=== PATIENT | male | born 1970 | race Caucasian/White ===

== ENCOUNTER 2017-08-05 20:01 | Observation (INO) | payer OTHER ==
[~2017-08-05] VITALS: Ht 180.3 cm; Wt 124.5 kg
[~2017-08-05 20:01] MED LIST: ZANTAC150 MG PO
[2017-08-05 20:50] LABS: MCH 28.1 PG (29.0-34.0); MCHC 33.2 G/DL (30.0-36.0); MCV 84.7 FL (86-99); MEAN PLAT.VOLUME 9.4 uM^3 (9.0-12.4); PLATELET COUNT 227 K/uL (156-360); RBC DIS.WIDTH-CV 12.7 % (11.8-14.6); RED BLOOD COUNT 5.55 M/uL (4.00-5.50); WHITE BLOOD COUNT 12.6 K/uL (4.1-10.2)
[2017-08-05 20:54] LABS: CHLORIDE 105 mEq/L (99-109); POTASSIUM 4.6 mEq/L (3.7-5.4); SODIUM 138 mEq/L (136-147)
[2017-08-05 20:56] LABS: GLUCOSE 125 mg/dL (70-99)
[2017-08-05 20:57] LABS: ANION GAP 10 MEQ/L (2-14)
[2017-08-05 20:58] LABS: TOTAL BILIRUBIN 0.4 mg/dL (0.0-1.0)
[2017-08-05 20:59] LABS: ALKALINE PHOSPHATASE 63 IU/L (3-129)
[2017-08-05 21:00] LABS: GFR ESTIMATE (CALCULATED) > 59 mL/min/
[2017-08-05 21:01] LABS: UREA NITROGEN (BUN) 15 mg/dL (9-23)
[2017-08-05 21:03] LABS: LIPASE 28 U/L (1.0-51.0)
[2017-08-05 21:06] LABS: TROP-I INTERPRETATION NEGATIVE; TROPONIN-I < 0.01 ng/mL (0.0-0.30)
[2017-08-05 23:27] LABS: PROTHROMBIN TIME 11.2 SEC (10.2-12.9)
[2017-08-05 23:30] LABS: PTT 28.9 SEC (25-37)
[2017-08-06] MEDS ORDERED: MOTRIN IB200 MG PO (01:53)
[2017-08-06 02:12] LABS: HDL CHOLESTEROL 45 MG/DL (Desirable>=40); LDL CHOLESTEROL 111 mg/dL (Desirable<100); NON-HDL CHOLESTEROL 144 mg/dL (Desirable<160); SAMPLE HEMOLYSIS CHECK 0; SAMPLE ICTERIC CHECK 0; SAMPLE LIPEMIA CHECK 0; TOTAL CHOLESTEROL 189 mg/dL (Desirable<200); TRIGLYCERIDES 167 MG/DL (Normal: <150)
[2017-08-06 07:24] LABS: TROP-I INTERPRETATION NEGATIVE; TROPONIN-I < 0.01 ng/mL (0.0-0.30)
[2017-08-06 09:36] VITALS: BP 133/90
[2017-08-06 11:45] VITALS: BP 134/80
[2017-08-06 12:34] VITALS: BP 135/90
[2017-08-06 12:36] VITALS: BP 142/99
[2017-08-06 12:37] VITALS: BP 136/93
[2017-08-06 13:10] LABS: TROP-I INTERPRETATION NEGATIVE; TROPONIN-I < 0.01 ng/mL (0.0-0.30)
[2017-08-07] MEDS ORDERED: ASPIR 8181 M1 PO (17:56)
== END 2017-08-06 18:10 | disposition home or self-care (01) ==
LOC: EME 20:01 → EDOF 08-06 02:17 → ENRESERV 08-06 02:19 → 5WEST 08-06 09:30
PROVIDERS: Emergency Medicine; Hospitalist
DX: G45.9 Transient cerebral ischemic attack, unspecified (principal); Z86.19 Personal history of other infectious and parasitic diseases; Z82.49 Family history of ischemic heart disease and other diseases of the circulatory system
CPT/HCPCS: 70450; 70551; 80053; 80061; 83690; 84484; 85027; 85610; 85730; 93005; 99281; 99285; G0378; J7030